=== PATIENT | male | born 1940 | race Caucasian/White ===

== ENCOUNTER 2018-04-24 17:31 | Emergency (ER) | payer OTHER ==
[~2018-04-24] VITALS: Ht 177.8 cm; Wt 101.2 kg
[2018-04-24] MEDS ORDERED: MORPHINE SULFATE 2 MG/ML DISP.SYRIN. IV ONE (18:00)
[2018-04-24] MEDS ORDERED: ONDANSETRON PF 4 MG/2 ML VIAL. IV ONE (18:00)
[2018-04-24] MEDS ORDERED: IV NORMAL SALINE 500ML 500 ML IV ONE (18:00)
[2018-04-24 18:10] LABS: BASO # 0.1 x10^3/uL (0.0-0.2); BASO % 1 % (0-3); EOS # 0.4 x10^3/uL (0.0-0.7); EOS % 2 % (0-3); HEMATOCRIT 40.9 % (39.0-53.0); HEMOGLOBIN 14.1 g/dL (13.0-17.5); LYMPH # 1.8 x10^3/uL (1.0-4.8); LYMPH % 7 % (24-48); MEAN CORPUSCULAR HEMOGLOBIN 31 pg (25-35); MEAN CORPUSCULAR HGB CONC 34 g/dL (31-37); MEAN CORPUSCULAR VOLUME 90 fL (79-100); MONO % 8 % (0-9); NEUT # 20.6 x10^3uL (1.8-7.7); NEUT % 83 % (31-73); PLATELET COUNT 380 x10^3/uL (140-400); RED BLOOD COUNT 4.56 x10^6/uL (4.30-5.70); WHITE BLOOD COUNT 24.9 x10^3/uL (4.0-11.0)
[2018-04-24] MEDS ORDERED: CONTRAST GIVEN MC PRN (18:15)
--- NOTE | 2018-04-24 18:29 | PHYS DOC ---
Adult General Chief Complaint Chief Complaint: URINE CATHETER PROBLEM HPI HPI Patient is a 77-year-old male who presents with complaint of lower abdominal pain as well as a symptom of burning in his rectum. Patient states the pain had started earlier today and has progressively gotten to the point where it is severe. He rates the pain to be a 10 out of 10 when he arrived. Patient was briefly evaluated by Dr. Jett and had been given a dose of morphine. As of my evaluation, patient rates his pain at a 9 out of 10. He states the worst of his symptoms are the burning sensation in his rectum and states that he has been having diarrhea which is not normal for him. He denies any chest pain or shortness of breath. Patient recently had a Bustamante catheter placed. Patient states that he is not sure whether or not anything worsens or improves his symptoms. He just states that they are severe. He does not believe that he has been running a fever. Review of Systems Review of Systems Constitutional: Denies fever or chills [] Respiratory: Denies cough or shortness of breath [] Cardiovascular: No additional information not addressed in HPI [] GI: Complains of lower abdominal pain and rectal pain. Positive diarrhea. [] Musculoskeletal: Complains of lower back pain.[] Neurologic: Denies headache, focal weakness or sensory changes [] All other systems were reviewed and found to be within normal limits, except as documented in this note. Current Medications Current Medications Current Medications Medications (Trade) Dose Ordered Sig/[facility] Start Time Stop Time Status Last Admin Dose Admin Info (Do NOT chart on this entry -- for MONITORING) 1 each PRN DAILY PRN 04/24/18 18:15 04/26/18 18:14 Iohexol (Omnipaque 300 Mg/ml) 75 ml 1X ONCE 04/24/18 18:30 04/24/18 18:31 Morphine Sulfate (Morphine 2mg Syringe) 2 mg 1X ONCE 04/24/18 18:00 04/24/18 18:09 DC 04/24/18 18:03 2 MG Ondansetron HCl (Zofran) 4 mg 1X ONCE 04/24/18 18:00 04/24/18 18:09 DC 04/24/18 18:02 4 MG Sodium Chloride 500 ml @ 0 mls/hr 1X ONCE 04/24/18 18:00 04/24/18 18:09 DC 04/24/18 18:02 500 MLS/HR Allergies Allergies Allergies Coded Allergies Type Severity Reaction Last Updated Verified No Known Drug Allergies 04/24/18 No Physical Exam Physical Exam Constitutional: Well developed, well nourished, in mild distress. [] HENT: Normocephalic, atraumatic, bilateral external ears normal, oropharynx moist, no oral exudates, nose normal. [] Eyes: PERRLA, EOMI, conjunctiva normal, no discharge. [] Neck: Normal range of motion, no tenderness, supple, no stridor. [] Cardiovascular:Heart rate regular rhythm [] Lungs & Thorax: Bilateral breath sounds clear to auscultation [] Abdomen: Bowel sounds normal, soft, with moderate suprapubic tenderness. Patient does have moderate skin breakdown with stage II sacral decubitus ulcers. [] Skin: Warm, dry. Stage II sacral decubitus ulcers are present. [] Extremities: No tenderness, no cyanosis, no clubbing, ROM intact, no edema. [] Neurologic: Alert and oriented appropriate for patient, normal motor function, normal sensory function, no focal deficits noted. [] Current Patient Data Vital Signs Vital Signs Date Time Temp Pulse Resp B/P (MAP) Pulse Ox O2 Delivery O2 Flow Rate FiO2 04/24/18 18:03 18 97 Room Air Lab Results Laboratory Tests Test 04/24/18 17:49 White Blood Count 24.9 x10^3/uL (4.0-11.0) H Red Blood Count 4.56 x10^6/uL (4.30-5.70) Hemoglobin 14.1 g/dL (13.0-17.5) Hematocrit 40.9 % (39.0-53.0) Mean Corpuscular Volume 90 fL (79-100) Mean Corpuscular Hemoglobin 31 pg (25-35) Mean Corpuscular Hemoglobin Concent 34 g/dL (31-37) Red Cell Distribution Width 14.0 % (11.5-14.5) Platelet Count 380 x10^3/uL (140-400) Neutrophils (%) (Auto) 83 % (31-73) H Lymphocytes (%) (Auto) 7 % (24-48) L Monocytes (%) (Auto) 8 % (0-9) Eosinophils (%) (Auto) 2 % (0-3) Basophils (%) (Auto) 1 % (0-3) Neutrophils # (Auto) 20.6 x10^3uL (1.8-7.7) H Lymphocytes # (Auto) 1.8 x10^3/uL (1.0-4.8) Monocytes # (Auto) 2.0 x10^3/uL (0.0-1.1) H Eosinophils # (Auto) 0.4 x10^3/uL (0.0-0.7) Basophils # (Auto) 0.1 x10^3/uL (0.0-0.2) Platelet Estimate Pending EKG EKG [] Radiology/Procedures Radiology/Procedures [] Impressions: PROCEDURE: CT ABD PELV W/ IV CONTRST ONLY CT Abdomen and Pelvis with contrast 04/24/2018 Clinical Indication: Severe abdominal pain and bloating Comparison: None Technique: Multiple CT images of the abdomen and pelvis were obtained with contrast following intravenous administration of 60 mL Omnipaque 300 *One or more of the following individualized dose reduction techniques were utilized for this examination: 1. Automated exposure control. 2. Adjustment of the mA and/or kV according to patient size. 3. Use of iterative reconstruction technique. Findings: Heart size is normal. Coronary artery calcifications are noted. Mild subpleural atelectasis. Liver, gallbladder, spleen, adrenal glands, pancreas unremarkable. Abdominal aorta normal in caliber. Major portal veins are patent. No retroperitoneal or mesenteric lymphadenopathy. Small and large bowel loops are normal in caliber without obstruction. Appendix is normal in appearance. Mild hydroureter without hydronephrosis. Moderately distended urinary bladder with pericystic stranding and no urinary bladder wall thickening. Moderate posterior enlargement with nodular trusion to the base of the urinary bladder. There is a malpositioned Bustamante catheter with the bulb in the prostatic urethra. No iliac or inguinal lymphadenopathy. No retroperitoneal or mesenteric lymphadenopathy. Multilevel lumbar spondylosis and moderate bilateral hip posterior 3 days. Multilevel laminectomies of the lumbar spine. IMPRESSION: 1. Malpositioned Bustamante catheter with the bulb in the prostatic urethra. Repositioning is recommended. 2. Moderate urinary bladder distention. Course & Med Decision Making Course & Med Decision Making Pertinent Labs and Imaging studies reviewed. (See chart for details) After reviewing findings on CT, it became evident that patient's pain was likely caused by trauma to the prostatic urethra due to catheter balloon being inflated in the prostatic urethra. At this point, catheter balloon was deflated and catheter was advanced into the bladder and old reinflated. Greater than 1 L of bloody urine was returned in the catheter at this point. At this point, patient reported complete relief of his pain. Patient's blood pressure was noted to drop to the 80s over 40s systolic. Patient was given 1 L of IV fluids as well as IV Rocephin. Patient reevaluated after fluids and antibiotics and blood pressure has returned to normal. Patient continues to report pain is completely resolved. Patient is noted to have small amount of bleeding around the catheter at the urethral meatus, consistent with trauma to the prostatic urethra. Patient will be discharged home with antibiotics and recommendation to follow-up with his urologist for further evaluation and treatment of the urethral injury. Dragon Disclaimer Dragon Disclaimer This electronic medical record was generated, in whole or in part, using a voice recognition dictation system. Departure Departure: Impression: Primary Impression: Internal injury, urethra, closed Additional Impressions: Leukocytosis Sacral decubitus ulcer, stage II Acute urinary retention Disposition: 01 HOME, SELF-CARE Condition: STABLE Referrals: INES ANAYA (PCP) Patient Instructions: Peptic Ulcer Disease, [id number], Urinary Retention, Acute, Male, Urinary Tract Infection Scripts Ciprofloxacin Hcl (CIPROFLOXACIN HCL) 250 Mg Tablet 1 TAB PO BID for infection, #28 TAB Prov: NELY PULIDO Jr. DO 04/24/18 Problem Qualifiers Primary Impression: Internal injury, urethra, closed Encounter type: initial encounter Qualified Codes: S37.30XA - Unspecified injury of urethra, initial encounter Additional Impressions: Leukocytosis Leukocytosis type: unspecified Qualified Codes: D72.829 - Elevated white blood cell count, unspecified NELY PULIDO Jr. DO Apr 24, 2018 18:29
[2018-04-24] MEDS ORDERED: IOHEXOL 300 MG/ML 75 ML VIAL. IV ONE (18:30)
[2018-04-24 18:45] LABS: ALBUMIN 2.1 g/dL (3.4-5.0); ALBUMIN/GLOBULIN RATIO 0.5 (1.0-1.7); CALCIUM 7.9 mg/dL (8.5-10.1); CREATININE 1.4 mg/dL (0.7-1.3); POTASSIUM 3.8 mmol/L (3.5-5.1); TOTAL BILIRUBIN 0.4 mg/dL (0.2-1.0); TOTAL PROTEIN 6.5 g/dL (6.4-8.2)
[2018-04-24] MEDS ORDERED: LIDOCAINE 5% TOPICAL OINTMENT 35GM TUBE. TP ONE (19:00)
[2018-04-24 19:01] LABS: % BANDS 4 % (0-9); % BASOS 2 % (0-3); % EOS 2 % (0-5); % LYMPHS 7 % (24-48); % METAS 2 % (0-0); % MONOS 4 % (0-10); % SEGS 79 % (35-66); PLATELET CLUMP PRESENT; PLT ESTIMATE ADEQUATE (ADEQUATE)
[2018-04-24 19:02] LABS: HYPERSEGS PRESENT; NUCLEATED RBC 1; TOXIC GRANULATION SLIGHT; TOXIC VACUOLATION SLIGHT
--- NOTE | 2018-04-24 19:26 | RAD ---
CT Abdomen and Pelvis with contrast 04/24/2018 Clinical Indication: Severe abdominal pain and bloating Comparison: None Technique: Multiple CT images of the abdomen and pelvis were obtained with contrast following intravenous administration of 60 mL Omnipaque 300 *One or more of the following individualized dose reduction techniques were utilized for this examination: 1. Automated exposure control. 2. Adjustment of the mA and/or kV according to patient size. 3. Use of iterative reconstruction technique. Findings: Heart size is normal. Coronary artery calcifications are noted. Mild subpleural atelectasis. Liver, gallbladder, spleen, adrenal glands, pancreas unremarkable. Abdominal aorta normal in caliber. Major portal veins are patent. No retroperitoneal or mesenteric lymphadenopathy. Small and large bowel loops are normal in caliber without obstruction. Appendix is normal in appearance. Mild hydroureter without hydronephrosis. Moderately distended urinary bladder with pericystic stranding and no urinary bladder wall thickening. Moderate posterior enlargement with nodular trusion to the base of the urinary bladder. There is a malpositioned Bustamante catheter with the bulb in the prostatic urethra. No iliac or inguinal lymphadenopathy. No retroperitoneal or mesenteric lymphadenopathy. Multilevel lumbar spondylosis and moderate bilateral hip posterior 3 days. Multilevel laminectomies of the lumbar spine. IMPRESSION: 1. Malpositioned Bustamante catheter with the bulb in the prostatic urethra. Repositioning is recommended. 2. Moderate urinary bladder distention. Electronically signed by: Justus Nieto MD (04/24/2018 7:23 PM) [facility]
[2018-04-24 19:57] VITALS: BP 82/35
[2018-04-24 20:21] LABS: BILIRUBIN,URINE NEG (NEG); CLARITY,URINE HAZY; COLOR,URINE ORANGE; GLUCOSE,URINE NEG (NEG); NITRITE,URINE NEG (NEG); UROBILINOGEN,URINE 0.2 mg/dL (0.2 mg/dL)
[2018-04-24 20:22] LABS: BACTERIA,URINE FEW /HPF (0-FEW); HYALINE CASTS, URINE OCC /HPF; OVAL FAT BODIES,URINE PRESENT /HPF
[2018-04-24] MEDS ORDERED: IV NORMAL SALINE 1,000ML 1,000 ML IV ONE (20:30)
[2018-04-24] MEDS ORDERED: cefTRIAXone SODIUM 1 GM VIAL IV ONE (20:55)
[2018-04-24] MEDS ORDERED: IV NORMAL SALINE 50ML 50 ML ONE (20:55)
[2018-04-24] MEDS ORDERED: FLUCONAZOLE 100 MG TABLET. PO ONE (21:00)
[2018-04-24] MEDS ORDERED: CIPR250T PO (22:00)
== END 2018-04-24 22:33 | disposition home or self-care (01) ==
LOC: ER 17:31
DX: S37.30XA Unspecified injury of urethra, initial encounter (principal); D72.829 Elevated white blood cell count, unspecified; L89.152 Pressure ulcer of sacral region, stage 2; R19.7 Diarrhea, unspecified; R33.8 Other retention of urine; T83.021A Displacement of indwelling urethral catheter, initial encounter; M47.896 Other spondylosis, lumbar region; X58.XXXA Exposure to other specified factors, initial encounter; Y93.89 Activity, other specified; Y92.89 Other specified places as the place of occurrence of the external cause; Y99.8 Other external cause status
CPT/HCPCS: 36415; 74177; 80053; 81001; 83605; 85007; 85025; 87086; 96361; 96365; 96375; 99285; J0696; J2270; J2405; J3010; J7040; Q9967; J7030